=== PATIENT | female | born 1940 | race Caucasian/White ===

== ENCOUNTER 2019-04-01 19:39 | Emergency (ER) | payer MEDICARE ==
[~2019-04-01] VITALS: Ht 172.7 cm; Wt 81.2 kg
[~2019-04-01 19:39] MED LIST: ACHD5005 PO; ASCO-262 PO; CEPH500C PO; CRAN500T2 PO; FEXO180T84 PO; FLUT9.9S NSEACH; GLUC1TAB29 PO; GUAI600T43 PO; HYDR-3455 PO; LEVO25TA2 PO; PANT40TA2 PO
--- OUTSIDE RECORDS SUMMARY | 2019-04-01 19:44 | XMS REPORT | Continuity of Care Document ---
Author Organization Unknown Address Unknown Allergies Active Description Code Type Severity Reaction Onset Reported/Identified Relationship to Patient Clinical Status Yes No Known Drug Allergies [id number] Drug Allergy Unknown N/A 07/29/2012 Yes milk [id number] Drug Allergy Moderate FLATULANCE 04/17/2016 Medications There is no data. Problems Date Dx Coded Attending Type Code Diagnosis Diagnosed By 08/11/2013 KALE, BOBAN N Ot 280.9 IRON DEFIC ANEMIA NOS 08/11/2013 KALE, BOBAN N Ot V58.69 OTH MED,LT,CURRENT USE 08/18/2013 KALE, BOBAN N Ot 280.9 IRON DEFIC ANEMIA NOS 08/18/2013 KALE, BOBAN N Ot V58.69 OTH MED,LT,CURRENT USE 09/02/2014 KALE, BOBAN N Ot 280.9 09/02/2014 KALE, BOBAN N Ot 530.81 09/02/2014 KALE, BOBAN N Ot 531.90 09/02/2014 KALE, BOBAN N Ot 783.21 09/02/2014 KALE, BOBAN N Ot V58.69 09/11/2014 KALE, BOBAN N Ot 280.9 09/11/2014 KALE, BOBAN N Ot 530.81 09/11/2014 KALE, BOBAN N Ot 531.90 09/11/2014 KALE, BOBAN N Ot 783.21 09/11/2014 KALE, BOBAN N Ot V58.69 08/25/2015 KALE, BOBAN N Ot D50.9 08/25/2015 KALE, BOBAN N Ot E03.9 08/25/2015 KALE, BOBAN N Ot K21.9 08/25/2015 KALE, BOBAN N Ot Z79.899 09/06/2015 KALE, BOBAN N Ot D50.9 09/06/2015 KALE, BOBAN N Ot E03.9 09/06/2015 ISAURA HENLEY Ot K21.9 09/06/2015 ISAURA HENLEY Ot Z79.899 04/17/2016 Ot 280.9 IRON DEFIC ANEMIA NOS 04/17/2016 Ot V58.69 OTH MED,LT,CURRENT USE 04/17/2016 Ot 280.9 IRON DEFIC ANEMIA NOS 04/17/2016 Ot V58.69 OTH MED,LT,CURRENT USE 04/17/2016 DANIEL DPM, LAINE Q Ot M20.12 HALLUX VALGUS (ACQUIRED), LEFT FOOT 04/17/2016 DANIEL DPM, LAINE Q Ot M20.42 OTHER HAMMER TOE(S) (ACQUIRED), LEFT PIOTR 04/17/2016 DANIEL DPM, LAINE Q Ot Z01.818 ENCOUNTER FOR OTHER PREPROCEDURAL EXAMIN 04/19/2016 DANIEL DPM, LAINE Q Ot M20.12 HALLUX VALGUS (ACQUIRED), LEFT FOOT 04/19/2016 DANIEL DPM, LAINE Q Ot M20.42 OTHER HAMMER TOE(S) (ACQUIRED), LEFT PIOTR 04/19/2016 DANIEL DPM, LAINE Q Ot Z01.818 ENCOUNTER FOR OTHER PREPROCEDURAL EXAMIN 04/24/2016 Ot 244.9 HYPOTHYROIDISM NOS 04/24/2016 Ot 280.9 IRON DEFIC ANEMIA NOS 04/24/2016 Ot 536.9 STOMACH FUNCTION DIS NOS 04/24/2016 Ot 715.09 GENERAL OSTEOARTHROSIS 04/24/2016 Ot V58.69 OTH MED,LT,CURRENT USE 04/24/2016 Ot 280.9 IRON DEFIC ANEMIA NOS 04/24/2016 Ot 531.90 STOMACH ULCER NOS 04/24/2016 Ot 585.3 CHRONIC KIDNEY DISEASE, STAGE III (MODER 04/24/2016 Ot V58.69 OTH MED,LT,CURRENT USE 04/24/2016 Ot 280.9 IRON DEFIC ANEMIA NOS 04/24/2016 Ot 531.90 STOMACH ULCER NOS 04/24/2016 Ot V58.69 OTH MED,LT,CURRENT USE 04/24/2016 Ot 280.9 IRON DEFIC ANEMIA NOS 04/24/2016 Ot 531.90 STOMACH ULCER NOS 04/24/2016 Ot 585.3 CHRONIC KIDNEY DISEASE, STAGE III (MODER 04/24/2016 Ot V58.69 OTH MED,LT,CURRENT USE 04/24/2016 Ot 280.9 IRON DEFIC ANEMIA NOS 04/24/2016 Ot 531.90 STOMACH ULCER NOS 04/24/2016 Ot 782.1 NONSPECIF SKIN ERUPT NEC 04/24/2016 Ot V58.69 OTH MED,LT,CURRENT USE 04/24/2016 Ot 280.9 IRON DEFIC ANEMIA NOS 04/24/2016 Ot V58.69 OTH MED,LT,CURRENT USE 04/24/2016 Ot 280.9 IRON DEFIC ANEMIA NOS 04/24/2016 Ot V58.69 OTH MED,LT,CURRENT USE 04/24/2016 KALEISAURA PALMA N Ot 280.9 IRON DEFIC ANEMIA NOS 04/24/2016 KALEISAURA PALMA N Ot 530.81 ESOPHAGEAL REFLUX 04/24/2016 KALEISAURA N Ot 531.90 STOMACH ULCER NOS 04/24/2016 KALEISAURA N Ot 783.21 LOSS OF WEIGHT 04/24/2016 ISAURA HENLEY N Ot V58.69 OTH MED,LT,CURRENT USE 04/24/2016 KALEISAURA PALMA N Ot D50.9 IRON DEFICIENCY ANEMIA, UNSPECIFIED 04/24/2016 KALEISAURA PALMA N Ot E03.9 HYPOTHYROIDISM, UNSPECIFIED 04/24/2016 ISAURA HENLEY N Ot K21.9 GASTRO-ESOPHAGEAL REFLUX DISEASE WITHOUT 04/24/2016 KALEISAURA PALMA N Ot Z79.899 OTHER DIRECTOR OF ACADEMIC SUPPORT (CURRENT) DRUG THERAPY 05/05/2016 DANIEL DPM, LAINE Q Ot M20.12 HALLUX VALGUS (ACQUIRED), LEFT FOOT 05/05/2016 DANIEL DPM, LAINE Q Ot M20.42 OTHER HAMMER TOE(S) (ACQUIRED), LEFT PIOTR 05/09/2016 DANIEL DPM, LAINE Q Ot M20.12 HALLUX VALGUS (ACQUIRED), LEFT FOOT 05/09/2016 DANIEL DPM, LAINE Q Ot M20.42 OTHER HAMMER TOE(S) (ACQUIRED), LEFT PIOTR 08/22/2016 KALEMIGUEL PALMAAN N Ot D50.9 IRON DEFICIENCY ANEMIA, UNSPECIFIED 08/22/2016 KALEMIGUEL PALMAAN N Ot E03.9 HYPOTHYROIDISM, UNSPECIFIED 08/22/2016 KALE BOBAN N Ot K21.9 GASTRO-ESOPHAGEAL REFLUX DISEASE WITHOUT 08/22/2016 ISAURA HENLEY Ot Z79.899 OTHER ASSISTED (CURRENT) DRUG THERAPY 09/04/2016 ISAURA HENLEY Ot D50.9 IRON DEFICIENCY ANEMIA, UNSPECIFIED 09/04/2016 ISAURA HENLEY Ot E03.9 HYPOTHYROIDISM, UNSPECIFIED 09/04/2016 ISAURA HENLEY Ot K21.9 GASTRO-ESOPHAGEAL REFLUX DISEASE WITHOUT 09/04/2016 ISAURA HENLEY Ot Z79.899 OTHER ASSISTED (CURRENT) DRUG THERAPY 09/26/2016 Ot 244.9 HYPOTHYROIDISM NOS 09/26/2016 Ot 280.9 IRON DEFIC ANEMIA NOS 09/26/2016 Ot 536.9 STOMACH FUNCTION DIS NOS 09/26/2016 Ot 715.09 GENERAL OSTEOARTHROSIS 09/26/2016 Ot V58.69 OTH MED,LT,CURRENT USE 09/26/2016 Ot 280.9 IRON DEFIC ANEMIA NOS 09/26/2016 Ot 531.90 STOMACH ULCER NOS 09/26/2016 Ot 585.3 CHRONIC KIDNEY DISEASE, STAGE III (MODER 09/26/2016 Ot V58.69 OTH MED,LT,CURRENT USE 09/26/2016 Ot 280.9 IRON DEFIC ANEMIA NOS 09/26/2016 Ot 531.90 STOMACH ULCER NOS 09/26/2016 Ot V58.69 OTH MED,LT,CURRENT USE 09/26/2016 Ot 280.9 IRON DEFIC ANEMIA NOS 09/26/2016 Ot 531.90 STOMACH ULCER NOS 09/26/2016 Ot 585.3 CHRONIC KIDNEY DISEASE, STAGE III (MODER 09/26/2016 Ot V58.69 OTH MED,LT,CURRENT USE 09/26/2016 Ot 280.9 IRON DEFIC ANEMIA NOS 09/26/2016 Ot 531.90 STOMACH ULCER NOS 09/26/2016 Ot 782.1 NONSPECIF SKIN ERUPT NEC 09/26/2016 Ot V58.69 OTH MED,LT,CURRENT USE 09/26/2016 Ot 280.9 IRON DEFIC ANEMIA NOS 09/26/2016 Ot V58.69 OTH MED,LT,CURRENT USE 09/26/2016 Ot 280.9 IRON DEFIC ANEMIA NOS 09/26/2016 Ot V58.69 OTH MED,LT,CURRENT USE 09/26/2016 ISAURA HENLEY Efrain Ot 280.9 IRON DEFIC ANEMIA NOS 09/26/2016 ISAURA HENLEY N Ot 530.81 ESOPHAGEAL REFLUX 09/26/2016 ISAURA HENLEY N Ot 531.90 STOMACH ULCER NOS 09/26/2016 ISAURA HENLEY N Ot 783.21 LOSS OF WEIGHT 09/26/2016 ISAUAR HENLEY Ot V58.69 OTH MED,LT,CURRENT USE 09/26/2016 ISAURA HENLEY N Ot D50.9 IRON DEFICIENCY ANEMIA, UNSPECIFIED 09/26/2016 ISAURA HENLEY N Ot E03.9 HYPOTHYROIDISM, UNSPECIFIED 09/26/2016 ISAURA HENLEY N Ot K21.9 GASTRO-ESOPHAGEAL REFLUX DISEASE WITHOUT 09/26/2016 KALEISAURA N Ot Z79.899 OTHER DIRECTOR OF ACADEMIC SUPPORT (CURRENT) DRUG THERAPY 09/26/2016 ISAURA HENLEY N Ot D50.9 IRON DEFICIENCY ANEMIA, UNSPECIFIED 09/26/2016 ISAURA HENLEY N Ot E03.9 HYPOTHYROIDISM, UNSPECIFIED 09/26/2016 ISAURA HENLEY N Ot K21.9 GASTRO-ESOPHAGEAL REFLUX DISEASE WITHOUT 09/26/2016 ISAURA HENLEY N Ot Z79.899 OTHER DIRECTOR OF ACADEMIC SUPPORT (CURRENT) DRUG THERAPY 09/27/2016 DANIEL DPM, LAINE Q Ot M20.42 OTHER HAMMER TOE(S) (ACQUIRED), LEFT PIOTR 09/27/2016 DANIEL DPM, LAINE Q Ot Z01.818 ENCOUNTER FOR OTHER PREPROCEDURAL EXAMIN 09/27/2016 DANIEL DPM, LAINE Q Ot Z11.2 ENCOUNTER FOR SCREENING FOR OTHER BACTER 10/05/2016 DANIEL DPM, LAINE Q Ot M20.42 OTHER HAMMER TOE(S) (ACQUIRED), LEFT PIOTR Procedures There is no data. Results Test Result Range Methicillin resistant Staphylococcus aureus (MRSA) screening culture - 05/05/16 11:00 Methicillin resistant Staphylococcus aureus (MRSA) screening culture NEG NRG Methicillin resistant Staphylococcus aureus (MRSA) screening culture - 09/26/16 13:20 Methicillin resistant Staphylococcus aureus (MRSA) screening culture NEG NRG Encounters ACCT No. Visit Date/Time Discharge Status Pt. Type Provider Facility Loc./Unit Complaint [id number] 10/05/2016 11:20:00 10/05/2016 16:15:00 DIS Outpatient DANIEL DPM, LAINE Q [facility] SDC LEFT 4TH HAMMERTOE [id number] 09/26/2016 13:07:00 09/26/2016 14:44:00 DIS Outpatient DANIEL DPM, LAINE Q [facility] PREOP HAMMERTOE LEFT 4TH DIGIT [id number] 08/01/2016 11:34:00 08/01/2016 23:59:59 CLS Outpatient ISAURA HENLEY N [facility] FS [id number] 05/05/2016 10:41:00 05/05/2016 17:30:00 DIS Outpatient DANIEL DPM, LAINE Q [facility] SDC LEFT FOOT HALLUX [id number] 04/17/2016 11:56:00 04/17/2016 13:32:00 DIS Outpatient DANIEL DPM, LAINE Q [facility] PREOP LEFT HALLUX VAGUS [id number] 08/03/2015 10:01:00 08/03/2015 23:59:59 CLS Outpatient KALE, BOBAN N [facility] FS [id number] 08/04/2014 09:47:00 08/04/2014 23:59:59 CLS Outpatient KALE BOBAN N [facility] FS [id number] 07/29/2013 10:19:00 08/18/2013 00:01:00 DIS Outpatient KALE BOBAN N [facility] FS [id number] 05/23/2013 14:42:00 08/11/2013 00:01:00 DIS Outpatient KALE, BOBAN N [facility] ONC [id number] 08/19/2013 00:00:00 Document Registration [id number] 08/12/2013 00:00:00 Document Registration [id number] 01/21/2013 13:27:00 Document Registration [id number] 07/29/2012 13:45:00 Document Registration [id number] 03/19/2012 15:14:00 Document Registration [id number] 11/14/2011 13:41:00 Document Registration [id number] 09/08/2011 10:04:00 Document Registration
--- NOTE | 2019-04-01 19:55 | ED Hip Pain/Injury ---
General Chief Complaint: Hip/Pelvic Problems Stated Complaint: LT HIP PAIN Source: patient, EMS, RN notes reviewed Exam Limitations: no limitations History of Present Illness Date Seen by Provider: Apr 01, 2019 Time Seen by Provider: 19:46 Allergies and Home Medications Allergies Coded Allergies: milk (Verified Allergy, Intermediate, FLATULANCE, 04/17/16) Home Medications Ascorbate Calcium 500 Mg Tablet, 500 MG PO DAILY, (Reported) Cephalexin 500 Mg Capsule, 1 CAP PO TID Prescribed by: LAINE SANCHEZ on 10/05/16 1503 Cranberry Extract 500 Mg Tablet, 500 MG PO DAILY, (Reported) Fexofenadine HCl 180 Mg Tablet, 180 MG PO DAILY, (Reported) Fluticasone Propionate 9.9 Ml [place].susp, 1 SPRAY NSEACH DAILY, (Reported) Gluc/Isiah-MSM#1/Vit C/[place]/Bor 1 Each Tablet, 1 EACH PO DAILY, (Reported) Guaifenesin 600 Mg Tab.er.12h, 600 MG PO DAILY, (Reported) Hydrocodone Bit/Acetaminophen 1 Each Tablet, 1-2 TAB PO Q4-6HR PRN for PAIN PRN PAIN Prescribed by: LAINE SANCHEZ on 10/05/16 1503 Levothyroxine Sodium 25 Mcg Tablet, 25 MCG PO DAILY, (Reported) Pantoprazole Sodium 40 Mg Tablet.dr, 40 MG PO DAILY PRN for HEARTBURN, (Reported) Past Rfoqipt-Qotmgw-Khgnlo Hx Patient Social History Recent Foreign Travel: No Contact w/Someone Who Travel: No Recent Hopitalizations: No Immunizations Up To Date Date of Pneumonia Vaccine: Oct 08, 2012 Date of Influenza Vaccine: Jul 08, 2016 Seasonal Allergies Seasonal Allergies: Yes Past Medical History Reproductive Disorders: No Female Reproductive Disorders: Denies Sexually Transmitted Disease: No HIV/AIDS: No UTI-Chronic Ulcer Arthritis, Chronic Back Pain Hypothyroidsim Loss of Vision: Bilateral Hearing Impairment: Hard of Hearing, Bilateral Hearing Aide Adverse Reaction/Blood Tranf: No (HAS HAD BLOOD WITH NO REACTION) Physical Exam Vital Signs Vital Signs - First Documented 04/01/19 19:39 Temp 98.3 Pulse 69 Resp 19 B/P (MAP) 189/86 (120) Pulse Ox 96 O2 Delivery Room Air Capillary Refill : Height, Weight, BMI Height: 5'8.00" Weight: 180lbs. 5.0oz. 81.221456io; 27.4 BMI Method: Progress/Results/Core Measures Results/Orders My Orders Orders - TAHIRA DURAN DO Dexamethasone Injection (Decadron Inject (04/01/19 20:00) Ketorolac Injection (Toradol Injection) (04/01/19 20:00) Ct Pelvis Wo (04/01/19 20:02) Ct Lumbar Spine Wo (04/01/19 20:02) Oxycodone Immediate Rel Tablet (Oxyir Ta (04/01/19 21:30) Medications Given in ED Current Medications Medications Dose Ordered Sig/Rc Route Start Time Stop Time Status Last Admin Dose Admin Dexamethasone Sodium Phosphate 15 mg ONCE ONCE IV 04/01/19 20:00 04/01/19 20:01 DC 04/01/19 20:48 15 MG Ketorolac Tromethamine 15 mg ONCE ONCE IVP 04/01/19 20:00 04/01/19 20:01 DC 04/01/19 20:47 15 MG Vital Signs/I&O 04/01/19 19:39 Temp 98.3 Pulse 69 Resp 19 B/P (MAP) 189/86 (120) Pulse Ox 96 O2 Delivery Room Air Departure Impression Primary Impression: Sciatica of left side Additional Impressions: Spinal stenosis at L4-L5 level Constipation Disposition: HOME, SELF-CARE Condition: Improved Departure-Patient Inst. Decision time for Depature: 21:27 Referrals: SONIA PATEL MD Patient Instructions: Sciatica (DC), Constipation, Adult (DC), Spinal Stenosis (DC) Add. Discharge Instructions: All discharge instructions reviewed with patient and/or family. Voiced understanding. MAY NEED REFERRAL TO A BACK SPECIALIST IF CONTINUED PROBLEMS. Scripts Methylprednisolone (Medrol) 4 Mg Tab.ds.pk 4 MG PO UD for SCIATICA for 6 Days, #21 PKG 0 Refills PER DOSE PACK INSTRUCTIONS Prov: TAHIRA DURAN DO 04/01/19 Oxycodone HCl/Acetaminophen (Oxycodone-Acetaminophen 5-325) 1 Each Tablet 1 EACH PO Q6H PRN for PAIN-MODERATE MDD 6 for 3 Days, #12 TAB 0 Refills Prov: TAHIRA DURAN DO 04/01/19 TAHIRA DURAN DO Apr 01, 2019 19:55
[2019-04-01] MEDS ORDERED: KETOROLAC 30 MG/ML VIAL IVP ONE (20:00)
[2019-04-01] MEDS ORDERED: DEXAMETHASONE 10 MG/ML (DECADRON) 1 ML VIAL IV ONE (20:00)
--- NOTE | 2019-04-01 21:04 | Diagnostic Imaging Report ---
PROCEDURE: CT lumbar spine without contrast. TECHNIQUE: Multiple contiguous axial images were obtained through the lumbar spine without the use of intravenous contrast. Sagittal and coronal reformations were then performed. Auto Exposure Controls were utilized during the CT exam to meet ALARA standards for radiation dose reduction. INDICATION: Left hip and low back pain, worsening Comparison: None Findings: The last well formed disc space is labeled L5-S1 for the purposes of this examination. No acute fracture is seen in the lumbar spine. Vertebral body heights are preserved. There is multilevel disc height loss. There is advanced degenerative changes at L1-2 and moderate at L2-3 and L3-4. There is trace anterolisthesis at L5-S1 and mild retrolisthesis at L1-2, otherwise alignment appears normal. There is severe facet arthropathy in the mid to lower lumbar spine, particularly at L5-S1. There are multilevel disc bulges present. There is spinal canal stenosis at each level from L1-2 down to L5-S1. This appears most pronounced at L3-4 and L4-5. There is mild foraminal narrowing at multiple levels bilaterally. The soft tissues about the spine demonstrate no acute abnormalities. There is calcific atherosclerosis. There is marked stool at the rectum. IMPRESSION: 1. No acute fracture is seen in the lumbar spine. 2. Multilevel degenerative changes, as described above, with marked facet arthropathy in the lower lumbar spine. 3. Multilevel spinal canal stenosis, most notable at L3-4 and L4-5. 4. Marked stool at the rectum, please correlate with any history of constipation. Dictated by: Dictated on workstation # [id number]
--- NOTE | 2019-04-01 21:09 | Diagnostic Imaging Report ---
PROCEDURE: CT pelvis without contrast. TECHNIQUE: Multiple contiguous axial images were obtained through the pelvis without the use of intravenous contrast. Sagittal and coronal reformations were performed. Auto Exposure Controls were utilized during the CT exam to meet ALARA standards for radiation dose reduction. INDICATION: Left hip and low back pain, worsening COMPARISON: None FINDINGS: There is diffuse osteopenia. There are advanced degenerative changes in the bilateral hip joints. There are prominent osteophytes with significant joint space loss. No acute fracture is seen in the pelvis. There is marked facet arthropathy at L5-S1. There is moderate stool at the rectum. No free fluid is seen in the pelvis. No masses or lymphadenopathy seen. IMPRESSION: 1. Advanced degenerative changes in the bilateral hips with no acute osseous abnormalities seen. Dictated by: Dictated on workstation # [id number]
[2019-04-01] MEDS ORDERED: METH4TAB PO (21:26)
[2019-04-01] MEDS ORDERED: OXYC-471 PO (21:26)
[2019-04-01 21:31] VITALS: BP 184/77
== END 2019-04-01 21:31 | disposition home or self-care (01) ==
LOC: EDUNIT# 19:39 → ER FS 19:40
DX: M48.061 Spinal stenosis, lumbar region without neurogenic claudication (principal); K59.00 Constipation, unspecified; M54.32 Sciatica, left side; E03.9 Hypothyroidism, unspecified; Z87.440 Personal history of urinary (tract) infections; Z91.011 Allergy to milk products; Z79.51 Long term (current) use of inhaled steroids
CPT/HCPCS: 72131; 72192; 96374; 96375

== ENCOUNTER → 2019-10-02 | Outpatient (CLI) | payer MEDICARE ==
[~2019-10-02] MED LIST changes: +METH4TAB PO; +OXYC-471 PO
--- NOTE | 2019-10-02 10:48 | Diagnostic Imaging Report ---
INDICATION: Left knee pain. TIME OF EXAM: 10:22 AM 3 views left knee were obtained. FINDINGS: Alignment is normal. There are some medial compartmental degenerative changes with mild joint space narrowing. Articular surfaces are smooth. No fracture, dislocation or effusion is detected. IMPRESSION: Mild degenerative changes. No acute bony abnormality is detected. Dictated by: Dictated on workstation # [id number]
== END ==
LOC: RAD FS 10:16
PROVIDERS: ATTEND Family Medicine
DX: M17.12 Unilateral primary osteoarthritis, left knee (principal)
CPT/HCPCS: 73562

== ENCOUNTER → 2019-11-04 | Outpatient (CLI) | payer MEDICARE ==
--- NOTE | 2019-11-04 11:11 | Diagnostic Imaging Report ---
EXAMINATION: Lumbar spine at 10:32 a.m. INDICATION: Back pain. AP, lateral, and spot lateral views were obtained. FINDINGS: The lateral view shows degenerative disc and bony disease at L1-L2, L2-L3, and L3-L4. These findings are similar to the CT lumbar spine exam of 04/01/2019. The disc spaces at L4-L5 and L5-S1 are fairly well maintained. There is no fracture or acute bony abnormality noted. There is no sign of a paraspinal mass. There is mild symmetrical sclerosis of the sacroiliac joints. IMPRESSION: 1. There is no evidence for an acute bony abnormality. 2. The degenerative disc and bony disease involving the lumbar spine seen previously does not appear to have progressed. 3. If further evaluation is desired, then MRI would be recommended. Dictated by: Dictated on workstation # [id number]
--- NOTE | 2019-11-04 11:52 | Diagnostic Imaging Report ---
INDICATION: Left hip pain. COMPARISON: April 01, 2019. TECHNIQUE: Three radiographs of the left hip dated November 04, 2019. FINDINGS: Degenerative changes noted within the partially visualized lower lumbar spine. The left sacroiliac joint is intact. No acute fracture or dislocation. Severe degenerative changes of the left hip are noted with severe joint space narrowing seen superiorly and medially. This is associated with sclerosis of the articular surfaces. Moderate osteophyte formation is also noted, particularly involving the femoral head. The left femoral head maintains its normal shape without collapse of the femoral head. Soft tissue calcifications lateral to the left hip are again identified and unchanged from prior imaging. The pubic symphysis is intact. IMPRESSION: No acute osseous abnormality with severe degenerative changes of the left hip. Dictated by: Dictated on workstation # [id number]
== END ==
LOC: RAD FS 10:26
PROVIDERS: ATTEND Nurse Practitioner
DX: M16.12 Unilateral primary osteoarthritis, left hip (principal); M51.36 Other intervertebral disc degeneration, lumbar region
CPT/HCPCS: 72100; 73502

== ENCOUNTER → 2020-05-10 | Outpatient (CLI) | payer MEDICARE | LOC: LAB FS 10:03 | PROVIDERS: ATTEND Family Medicine | DX: Z20.828 Contact with and (suspected) exposure to other viral communicable diseases (principal) | CPT/HCPCS: 87635 ==

== ENCOUNTER → 2020-10-14 | Outpatient (CLI) | payer MEDICARE ==
--- NOTE | 2020-10-14 15:14 | Diagnostic Imaging Report ---
INDICATION: Recent fall. Hip pain. COMPARISON: None. FINDINGS: 2 views of the right hip were obtained and show no fractures, dislocations, or other acute bony abnormalities. Joint spaces are well maintained throughout. The soft tissues appear unremarkable. No radiopaque foreign bodies are identified. IMPRESSION: Unremarkable radiographic exam of the right hip. Dictated by: Dictated on workstation # [id number]
== END ==
LOC: RAD FS 13:58
PROVIDERS: ATTEND Nurse Practitioner
DX: M25.551 Pain in right hip (principal)
CPT/HCPCS: 73502

== ENCOUNTER → 2021-03-22 | Outpatient (CLI) | payer MEDICARE ==
[~2021-03-22] MED LIST changes: -CRAN500T2 PO; +CRAN500T3 PO; -OXYC-471 PO; +OXYC1TAB11 PO
--- NOTE | 2021-03-22 09:58 | Diagnostic Imaging Report ---
Clinical indication: Patient fell a month ago and hit head. Exam: Axial CT scan of the brain without IV contrast with coronal and sagittal reformatted images. Auto Exposure Controls were utilized during the CT exam to meet ALARA standards for radiation dose reduction. Comparison: None. Findings: There is no evidence of acute cerebral infarct, intracranial hemorrhage, or gross mass effect. The brain parenchymal volume appears appropriate for patient's age. There are subtle patchy areas of low-attenuation white matter changes involving both cerebral hemispheres likely representing mild chronic small vessel ischemic disease and leukoaraiosis. There is normal meeks-white matter distinction. There is no significant midline shift or herniation. There is no evidence of hydrocephalus. The basal cisterns are unremarkable. The skull, extracranial soft tissue, and orbits are unremarkable. The paranasal sinuses are unremarkable. Temporal bones show no significant abnormality. Impression: Unremarkable CT scan of the brain for age. Dictated by: Dictated on workstation # [id number]
== END ==
LOC: RAD FS 09:19
PROVIDERS: ATTEND Family Medicine
DX: S09.90XA Unspecified injury of head, initial encounter (principal); W19.XXXA Unspecified fall, initial encounter
CPT/HCPCS: 70450

== ENCOUNTER → 2021-08-24 | Outpatient (CLI) | payer MEDICARE ==
[2021-08-24 10:25] LABS: HEMATOCRIT 46 % (35-52); HEMOGLOBIN 15.1 g/dL (11.5-16.0); MEAN CORPUSCULAR HEMOGLOBIN 31 pg (25-34); MEAN CORPUSCULAR HGB CONC 33 g/dL (32-36); MEAN CORPUSCULAR VOLUME 92 fL (80-99); MEAN PLATELET VOLUME 9.1 fL (9.0-12.2); PLATELET COUNT 258 10^3/uL (130-400); WHITE BLOOD COUNT 6.7 10^3/uL (4.3-11.0)
[2021-08-24 12:51] LABS: ALBUMIN 4.3 GM/DL (3.2-4.5); BILIRUBIN,TOTAL 0.9 MG/DL (0.1-1.0); CALCIUM 9.6 MG/DL (8.5-10.1); CREATININE SERUM 0.93 MG/DL (0.60-1.30); POTASSIUM 4.4 MMOL/L (3.6-5.0); TOTAL PROTEIN 7.2 GM/DL (6.4-8.2)
== END ==
LOC: LAB FS 09:12
PROVIDERS: ATTEND Registered Nurse Emergency
DX: R53.83 Other fatigue (principal)
CPT/HCPCS: 36415; 80053; 82607; 84443; 85027

== ENCOUNTER 2022-04-09 08:27 | Emergency (ER) | payer MEDICARE ==
[~2022-04-09] VITALS: Ht 172.7 cm; Wt 84.6 kg
[~2022-04-09 08:27] MED LIST changes: -CRAN500T3 PO; +CRAN500T4 PO
--- NOTE | 2022-04-09 08:49 | ED Cough/URI ---
General Chief Complaint: Respiratory Problems Stated Complaint: SOB History of Present Illness Date Seen by Provider: Apr 09, 2022 Time Seen by Provider: 08:48 Initial Comments 81-year-old female presents with generalized malaise, sore throat, mild cough, lack of appetite. She reports a symptom started yesterday. Patient's also has similar symptoms and so does her son. She just wanted to get checked out. No shortness of breath, no reports of fever, chills, nausea or vomiting. Allergies and Home Medications Allergies Coded Allergies: milk (Verified Allergy, Intermediate, FLATULANCE, 04/17/16) Patient Home Medication List Home Medication List Reviewed: Yes Ascorbate Calcium (Vitamin C) 500 Mg Tablet, 500 MG PO DAILY, (Reported) Entered as Reported by: DARWIN OBRIEN on 09/26/16 1318 Cephalexin (Cephalexin) 500 Mg Capsule, 1 CAP PO TID Prescribed by: LAINE SANCHEZ on 10/05/16 1503 Cranberry Extract (Cranberry) 500 Mg Tablet, 500 MG PO DAILY, (Reported) Entered as Reported by: DAKOTA GARCIA on 04/17/16 1210 Fexofenadine HCl (Abbey Allergy) 180 Mg Tablet, 180 MG PO DAILY, (Reported) Entered as Reported by: DAKOTA GARCIA on 04/17/16 1210 Fluticasone Propionate (Flonase Allergy Relief) 9.9 Ml [place].susp, 1 SPRAY NSEACH DAILY, (Reported) Entered as Reported by: DARWIN OBRIEN on 09/26/16 1318 Gluc/Isiah-MSM#1/Vit C/Bolivar/Bor (Vkcrume-Erdnq-TVL Complex Cplt) 1 Each Tablet, 1 EACH PO DAILY, (Reported) Entered as Reported by: DAKOTA GARCIA on 04/17/16 1210 Guaifenesin (Mucinex) 600 Mg Tab.er.12h, 600 MG PO DAILY, (Reported) Entered as Reported by: DAKOTA GARCIA on 04/17/16 1210 Hydrocodone Bit/Acetaminophen (Lortab 5 Mg Tablet) 1 Each Tablet, 1-2 TAB PO Q4-6HR PRN for PAIN Prescribed by: LAINE SANCHEZ on 10/05/16 1503 Levothyroxine Sodium (Synthroid) 25 Mcg Tablet, 25 MCG PO DAILY, (Reported) Entered as Reported by: DAKOTA GARCIA on 04/17/16 1210 Methylprednisolone (Medrol) 4 Mg Tab.ds.pk, 4 MG PO UD Prescribed by: TAHIRA DURAN on 04/01/192125 Oxycodone HCl/Acetaminophen (Oxycodone-Acetaminophen 5-325) 1 Each Tablet, 1 E ACH PO Q6H PRN for PAIN-MODERATE Prescribed by: TAHIRA DURAN on 04/01/192125 Pantoprazole Sodium (Protonix) 40 Mg Tablet.dr, 40 MG PO DAILY PRN for HEARTBURN, (Reported) Entered as Reported by: DAKOTA GARCIA on 04/17/16 1210 Review of Systems Review of Systems Constitutional: see HPI; No chills, No fever; malaise EENTM: throat pain Respiratory: cough; No short of breath Cardiovascular: no symptoms reported Gastrointestinal: loss of appetite; No nausea, No vomiting Genitourinary: no symptoms reported Musculoskeletal: no symptoms reported Skin: no symptoms reported Psychiatric/Neurological: No Symptoms Reported Hematologic/Lymphatic: No Symptoms Reported Immunological/Allergic: no symptoms reported Past Eefyzic-Ulyhzv-Mkomrp Hx Seasonal Allergies Seasonal Allergies: No Past Medical History Surgeries: Yes Orthopedic Respiratory: No Cardiac: No Neurological: No Reproductive Disorders: No Female Reproductive Disorders: Denies Sexually Transmitted Disease: No HIV/AIDS: No Genitourinary: No UTI-Chronic Gastrointestinal: No Ulcer Musculoskeletal: No Arthritis, Chronic Back Pain Endocrine: Yes Hypothyroidsim HEENT: No Loss of Vision: Bilateral Hearing Impairment: Hard of Hearing, Bilateral Hearing Aide Cancer: No Psychosocial: No Integumentary: No Blood Disorders: No Adverse Reaction/Blood Tranf: No (HAS HAD BLOOD WITH NO REACTION) Physical Exam Vital Signs - First Documented 04/09/22 08:35 Temp 36.4 Pulse 78 Resp 16 B/P (MAP) 168/79 (108) Pulse Ox 94 O2 Delivery Room Air Capillary Refill : Height: 5'8.00" Weight: 179lbs. 0oz. 81.804238hr; 27.4 BMI Method:Stated General Appearance: WD/WN, no apparent distress HEENT: PERRL/EOMI, normal ENT inspection Neck: full range of motion, normal inspection Respiratory: lungs clear Cardiovascular: normal peripheral pulses, regular rate, rhythm Gastrointestinal: non tender, soft Neurologic/Psychiatric: alert, normal mood/affect, oriented x 3 Skin: normal color, warm/dry Progress/Results/Core Measures Suspected Sepsis SIRS Temperature: Pulse: Respiratory Rate: Blood Pressure / Mean: Results/Orders Lab Results Laboratory Tests Test 04/09/22 08:48 04/09/22 09:09 Range/Units Influenza Type A (RT-PCR) Not Detected Not Detecte Influenza Type B (RT-PCR) Not Detected Not Detecte SARS-CoV-2 RNA (RT-PCR) Detected H Not Detecte Group A Streptococcus Screen NEGATIVE NEGATIVE My Orders Orders - MALDONADO GUILLEN DO Rapid Strep A Screen (04/09/22 08:57) Influenza A And B By Pcr (04/09/22 08:57) Covid 19 Inhouse Test (04/09/22 08:57) Vital Signs/I&O 04/09/22 04/09/22 08:35 09:34 Temp 36.4 36.4 Pulse 78 66 Resp 16 16 B/P (MAP) 168/79 (108) 141/79 Pulse Ox 94 94 O2 Delivery Room Air Room Air Capillary Refill : Progress Note : Progress Note Patient is positive for COVID. Discussed the supportive care. Patient stable and discharged home with return precautions Departure Impression Primary Impression: COVID-19 Disposition: 01 HOME, SELF-CARE Condition: Stable Departure-Patient Inst. Referrals: SONIA PATEL MD (PCP) Primary Care Physician Patient Instructions: COVID-19 After You Have Been Vaccinated Add. Discharge Instructions: Drink plenty of fluids Tylenol or ibuprofen as needed for fever chills Return to the ER if you develop worsening shortness of breath, worsening nausea and inability keeping down or any other concerns. All discharge instructions reviewed with patient and/or family. Voiced understanding. MALDONADO GUILLEN DO Apr 09, 2022 08:48
[2022-04-09 09:34] VITALS: BP 141/79
== END 2022-04-09 09:35 | disposition home or self-care (01) ==
LOC: EDUNIT# 08:27 → ER FS 08:28
DX: U07.1 COVID-19 (principal)
CPT/HCPCS: 87430; 87636; 99283

== ENCOUNTER 2022-05-06 03:02 | Emergency (ER) | payer MEDICARE ==
[~2022-05-06] VITALS: Ht 172.7 cm; Wt 84.2 kg
--- NOTE | 2022-05-06 03:27 | ED Fall/Injury ---
General Chief Complaint: Laceration Stated Complaint: HEAD LACERATION Nursing Triage Note: Patient states that she was going to help another member in the house who fell when she tripped and fell. Patient states that she hit the right side of her head on the dresser. Patient has a small laceration to the right temporal area. Patient denied any loss of consciousness. Patient also denies neck or back pain. Source: patient Exam Limitations: no limitations History of Present Illness Date Seen by Provider: May 06, 2022 Time Seen by Provider: 03:06 Initial Comments 81-year-old female coming in after she tripped and hit the right side of her head on the corner of a dresser just prior to arrival. Did not pass out and remembers all events. Has not had any nausea or vomiting. Is developing a mild headache that is throbbing on the right side of her forehead. She endorses having laceration to the right judaism. Last tetanus shot was less than 5 years ago. She is otherwise denying any other acute complaints. She does not take any blood thinners. Allergies and Home Medications Allergies Coded Allergies: milk (Verified Allergy, Intermediate, FLATULANCE, 04/17/16) Patient Home Medication List Home Medication List Reviewed: Yes Ascorbate Calcium (Vitamin C) 500 Mg Tablet, 500 MG PO DAILY, (Reported) Entered as Reported by: DARWIN OBRIEN on 09/26/16 1318 Cephalexin (Cephalexin) 500 Mg Capsule, 1 CAP PO TID Prescribed by: LAINE SANCHEZ on 10/05/16 1503 Cranberry Extract (Cranberry) 500 Mg Tablet, 500 MG PO DAILY, (Reported) Entered as Reported by: DAKOTA GARCIA on 04/17/16 1210 Fexofenadine HCl (Abbey Allergy) 180 Mg Tablet, 180 MG PO DAILY, (Reported) Entered as Reported by: DAKOTA GARCIA on 04/17/16 1210 Fluticasone Propionate (Flonase Allergy Relief) 9.9 Ml [place].susp, 1 SPRAY NSEACH DAILY, (Reported) Entered as Reported by: DARWIN OBRIEN on 09/26/16 1318 Gluc/Isiah-MSM#1/Vit C/Bolivar/Bor (Osxcmwv-Gesvk-RWX Complex Cplt) 1 Each Tablet, 1 EACH PO DAILY, (Reported) Entered as Reported by: DAKOTA GARCIA on 04/17/16 1210 Guaifenesin (Mucinex) 600 Mg Tab.er.12h, 600 MG PO DAILY, (Reported) Entered as Reported by: DAKOTA GARCIA on 04/17/16 1210 Hydrocodone Bit/Acetaminophen (Lortab 5 Mg Tablet) 1 Each Tablet, 1-2 TAB PO Q4-6HR PRN for PAIN Prescribed by: LAINE SANCHEZ on 10/05/16 1503 Levothyroxine Sodium (Synthroid) 25 Mcg Tablet, 25 MCG PO DAILY, (Reported) Entered as Reported by: DAKOTA GARCIA on 04/17/16 1210 Methylprednisolone (Medrol) 4 Mg Tab.ds.pk, 4 MG PO UD Prescribed by: TAHIRA DURAN on 04/01/192125 Oxycodone HCl/Acetaminophen (Oxycodone-Acetaminophen 5-325) 1 Each Tablet, 1 EAC H PO Q6H PRN for PAIN-MODERATE Prescribed by: TAHIRA DURAN on 04/01/192125 Pantoprazole Sodium (Protonix) 40 Mg Tablet.dr, 40 MG PO DAILY PRN for HEARTBURN, (Reported) Entered as Reported by: DAKOTA GARCIA on 04/17/16 1210 Review of Systems Review of Systems Constitutional: No fever Eyes: Denies Blurred Vision Ears, Nose, Mouth, Throat: no symptoms reported Respiratory: no symptoms reported Cardiovascular: no symptoms reported Gastrointestinal: no symptoms reported Genitourinary: no symptoms reported Musculoskeletal: no symptoms reported Skin: see HPI Psychiatric/Neurological: Headache All Other Systems Reviewed Negative Unless Noted: Yes Past Setqiwf-Mdjydz-Vxnrlq Hx Patient Social History Tobacco Use?: No Substance use?: No Alcohol Use?: No Pt feels they are or have been: No Immunizations Up To Date First/Initial COVID19 Vaccinat: Yes Second COVID19 Vaccination Jesus: Yes COVID19 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 Seasonal Allergies Seasonal Allergies: No Past Medical History Surgery/Hospitalization HX: HTN; Hypothyroidism Surgeries: Yes Orthopedic Respiratory: No Cardiac: No Neurological: No Reproductive Disorders: No Female Reproductive Disorders: Denies Sexually Transmitted Disease: No HIV/AIDS: No Genitourinary: No UTI-Chronic Gastrointestinal: No Ulcer Musculoskeletal: No Arthritis, Chronic Back Pain Endocrine: Yes Hypothyroidsim HEENT: No Loss of Vision: Bilateral Hearing Impairment: Hard of Hearing, Bilateral Hearing Aide Cancer: No Psychosocial: No Integumentary: No Blood Disorders: No Adverse Reaction/Blood Tranf: No (HAS HAD BLOOD WITH NO REACTION) Physical Exam Vital Signs Vital Signs - First Documented 05/06/22 03:08 Temp 37.0 Pulse 94 Resp 16 B/P (MAP) 184/91 (122) Pulse Ox 96 O2 Delivery Room Air Capillary Refill : Less Than 3 Seconds Height, Weight, BMI Height: 5'8.00" Weight: 179lbs. 0oz. 81.924752rd; 28.00 BMI Method:Stated General Appearance: WD/WN, no apparent distress HEENT: PERRL/EOMI, normal ENT inspection, pharynx normal, other (2.5cm laceration to the right judaism that is superficial) Neck: non-tender, full range of motion, supple, normal inspection Cardiovascular: regular rate, rhythm, no edema, no murmur Respiratory: chest non-tender, lungs clear, normal breath sounds, no respiratory distress, no accessory muscle use Gastrointestinal: normal bowel sounds, non tender, soft; No distended, No guarding, No rebound Back: normal inspection, no CVA tenderness, no vertebral tenderness Extremities: normal range of motion, non-tender, normal inspection, no pedal edema, no calf tenderness Neurologic/Psychiatric: 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-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 nml as tested, no motor/sensory deficits, alert, normal mood/affect, oriented x 3 Skin: normal color, warm/dry Lymphatic: no adenopathy Kelsie Coma Score Best Eye Response: (4) Open Spontaneously Best Verbal Response: (5) Oriented Best Motor Response: (6) Obeys Commands Procedures/Interventions Wound Location: Scalp Other Wound Location right judaism Wound Length (cm): 2.5 Wound's Depth, Shape: superficial Wound Explored: clean Irrigated w/ Saline (ccs): 100 Other Closure Supply: Wound Adhesive (Hair apposition technique utilized) Progress Hair apposition technique with wound adhesive used with good closure. Patient tolerated well. Progress/Results/Core Measures Results/Orders My Orders Orders - KAMILA MCDONNELL MD Ct Head Wo (05/06/22 03:10) Acetaminophen Tablet (Tylenol Tablet) (05/06/22 03:30) Medications Given in ED Current Medications Medications Dose Ordered Sig/Rc Route Start Time Stop Time Status Last Admin Dose Admin Acetaminophen 1,000 mg ONCE ONCE PO 05/06/22 03:30 05/06/22 03:31 DC 05/06/22 03:50 1,000 MG Vital Signs/I&O 05/06/22 03:08 Temp 37.0 Pulse 94 Resp 16 B/P (MAP) 184/91 (122) Pulse Ox 96 O2 Delivery Room Air Blood Pressure Mean: 122 Progress Progress Note : Progress Note 81-year-old female coming in after mechanical fall hitting the right side of her head. ABCs were intact and vitals were stable on presentation. Physical exam with a 2 and half centimeter laceration to the right judaism. This was closed with tissue adhesive without difficulty. Tetanus is up-to-date. CT head ordered due to the trauma. Not having any neck or back pain. Imaging was negative for any acute findings. The patient was then discharged home in stable condition with strict return precautions. Diagnostic Imaging Diagonstic Imaging: CT Plain Films/CT/US/NM/MRI: head Reviewed: Reviewed [facility] Departure Impression Primary Impression: Fall Qualified Codes: W19.XXXA - Unspecified fall, initial encounter Additional Impression: Laceration of head Qualified Codes: S01.01XA - Laceration without foreign body of scalp, ini tial encounter Disposition: HOME, SELF-CARE Condition: Stable Departure-Patient Inst. Decision time for Depature: 05:38 Referrals: SONIA PATEL MD (PCP/Family) Primary Care Physician Patient Instructions: Laceration Repair With Glue ED Add. Discharge Instructions: Try not to let the area get wet for the next 24 hours. You can let water run over it for the next couple days but do not submerge it in water for the next week. After 1 week you can clean the area more vigorously. Let the glue fall out by itself. Take ibuprofen or Tylenol for headache. KAMILA MCDONNELL MD May 06, 2022 03:27
[2022-05-06] MEDS ORDERED: ACETAMINOPHEN 500 MG TAB (TYLENOL) PO ONE (03:30)
[2022-05-06 05:39] VITALS: BP 184/91
--- NOTE | 2022-05-06 06:04 | Diagnostic Imaging Report ---
Clinical Indication: Patient fell and hit head on dresser. Exam: Axial CT scan of the brain without IV contrast with coronal and sagittal reformatted images. Auto Exposure Controls were utilized during the CT exam to meet ALARA standards for radiation dose reduction. Comparison: Head CT without contrast dated 03/22/2021. Findings: There is no evidence of acute cerebral infarct, intracranial hemorrhage, or gross mass effect. The brain parenchymal volume appears appropriate for patient's age. Chronic small vessel ischemic disease is seen. There is normal meeks-white matter distinction. There is no significant midline shift or herniation. There is no evidence of hydrocephalus. The basal cisterns are unremarkable. There is a small area of extracranial soft tissue swelling and air involving the right lateral aspect of the head. There is no skull fracture. Otherwise, the skull, extracranial soft tissue, and orbits are unremarkable. The paranasal sinuses are unremarkable. Temporal bones show no significant abnormality. Impression: 1: There is no evidence of acute intracranial process. There is no skull fracture. I agree with [facility] report. Dictated by: Dictated on workstation # [id number]
== END 2022-05-06 05:41 | disposition home or self-care (01) ==
LOC: EDUNIT# 03:02 → ER FS 03:06
DX: S01.01XA Laceration without foreign body of scalp, initial encounter (principal); W01.198A Fall on same level from slipping, tripping and stumbling with subsequent striking against other object, initial encounter
CPT/HCPCS: 70450

== ENCOUNTER 2023-01-29 09:58 | Outpatient (RCR) | payer MEDICARE | END 2023-02-04 | disposition home or self-care (01) | LOC: ONC 09:58 | PROVIDERS: ATTEND Radiology Radiation Oncology | DX: Z23 Encounter for immunization (principal); I10 Essential (primary) hypertension; K21.9 Gastro-esophageal reflux disease without esophagitis; M19.90 Unspecified osteoarthritis, unspecified site; D50.9 Iron deficiency anemia, unspecified; E03.9 Hypothyroidism, unspecified | CPT/HCPCS: 99205 ==

== ENCOUNTER → 2023-03-07 | Outpatient (RCR) | payer MEDICARE | END | disposition home or self-care (01) | LOC: ONC 02-07 11:19 | PROVIDERS: ATTEND Radiology Radiation Oncology | DX: Z51.0 Encounter for antineoplastic radiation therapy (principal); C50.411 Malignant neoplasm of upper-outer quadrant of right female breast; I10 Essential (primary) hypertension; E03.9 Hypothyroidism, unspecified; Z17.0 Estrogen receptor positive status [ER+]; Z79.891 Long term (current) use of opiate analgesic; Z79.890 Hormone replacement therapy; Z79.899 Other long term (current) drug therapy | CPT/HCPCS: 77280; 77290; 77295; 77300; 77307; 77334; 77336; 77417 ==

== ENCOUNTER 2023-03-12 09:19 | Outpatient (RCR) | payer MEDICARE | END 2023-04-06 | disposition home or self-care (01) | LOC: ONC 09:19 | PROVIDERS: ATTEND Radiology Radiation Oncology | DX: C50.411 Malignant neoplasm of upper-outer quadrant of right female breast (principal) | CPT/HCPCS: 77336 ==

== ENCOUNTER 2023-04-26 08:48 | Outpatient (RCR) | payer MEDICARE | END 2023-05-07 | LOC: ONC 08:48 | PROVIDERS: ATTEND Radiology Radiation Oncology | DX: C50.411 Malignant neoplasm of upper-outer quadrant of right female breast (principal) | CPT/HCPCS: 99213 ==